=== PATIENT | female | born 1960 | race Caucasian/White ===

== ENCOUNTER → 2018-12-27 | Outpatient (CLI) | payer OTHER | LOC: YCFC.O 09:19 | PROVIDERS: ATTEND Nurse Practitioner Family | DX: Z13.220 Encounter for screening for lipoid disorders (principal); E11.65 Type 2 diabetes mellitus with hyperglycemia ==

== ENCOUNTER → 2018-12-28 | Outpatient (CLI) | payer OTHER ==
--- NOTE | 2018-12-28 11:44 | RAD ---
EXAM DESCRIPTION: Chest,2 Views CLINICAL HISTORY: COPD COMPARISON: None TECHNIQUE: PA/lateral FINDINGS: Minimal linear scarring or discoid atelectasis in the right perihilar and left lingular regions. Heart size is prominent with normal pulmonary vascularity. No pleural effusion or pneumothorax. Lungs are otherwise clear with no consolidating infiltrate. Lateral view shows intact sternum and T-spine. IMPRESSION: Prominent heart without congestive failure. Electronically signed by: Óscar Riggins MD 12/28/2018 11:41 AM CDT
--- NOTE | 2018-12-28 16:13 | RAD ---
EXAM DESCRIPTION: Hip,Left 2 Views: CR/DR/XR CLINICAL HISTORY: 58 years Female HIP PAIN COMPARISON: Chest x-ray on this visit. TECHNIQUE: Two Views. AP neutral AP ABDuction.. Technically difficult study due to patient body habitus and bone density.. FINDINGS: Narrowing of the superior left hip joint and marginal spurs superiorly including the acetabulum. No displaced dislocation. Enthesophytes on the greater trochanter at the gluteus insertions. No abnormal radiodense objects in the soft tissues. IMPRESSION: Limited study. Narrowing of the superior left hip joint with marginal spurs. No displaced fracture. Enthesophytes. Evaluation for fracture is limited given the degree of osteopenia. If high clinical concern for acute fracture, correlation with MRI recommended given its greater sensitivity in the osteopenic patient. If the patient cannot tolerate MRI imaging or more urgent imaging is required, CT could be performed, however it is less sensitive in the osteopenic patient when compared to MRI. Electronically signed by: Steven Loyola MD 12/28/2018 4:11 PM CDT
== END ==
LOC: RAD 11:00
PROVIDERS: ATTEND Nurse Practitioner Family
DX: J44.9 Chronic obstructive pulmonary disease, unspecified (principal); M25.852 Other specified joint disorders, left hip

== ENCOUNTER → 2019-01-13 | Outpatient (CLI) | payer OTHER ==
--- NOTE | 2019-01-13 11:48 | RAD ---
EXAM DESCRIPTION: Pelvis CLINICAL HISTORY: 58 years Female, HIP PAIN COMPARISON: 12/28/2018. FINDINGS/IMPRESSION: Single frontal view of the pelvis demonstrate overlying bowel gas which partially obscures the sacrum and medial aspect of the bilateral iliac bones. Mild bilateral hip osteoarthrosis. No acute displaced fracture or dislocation is seen. Scattered phleboliths are present within the pelvis. The bone mineralization is preserved. Electronically signed by: Devon Dubose DO 01/13/2019 11:46 AM CDT
== END ==
LOC: RAD 09:06
PROVIDERS: ATTEND Orthopaedic Surgery
DX: M16.0 Bilateral primary osteoarthritis of hip (principal); I87.8 Other specified disorders of veins

== ENCOUNTER → 2019-01-19 | Outpatient (CLI) | payer OTHER ==
--- NOTE | 2019-01-19 12:28 | MRI ---
MRI left hip without contrast INDICATION: Tendon rupture hip pain TECHNIQUE: Noncontrast MR imaging left hip FINDINGS: No fracture or osteonecrosis left hip. Mild osteoarthrosis pubic symphysis. Small cyst left femoral neck posteriorly. Tendinopathy and mild interstitial chronic partial tears of the gluteal tendons and mild left greater trochanteric bursitis. No complete rupture or retraction. Mild degenerative signal and fraying anterior superior labrum left hip Proximal hamstring tendons are intact. IMPRESSION: Gluteal tendinopathy and mild chronic interstitial partial tears left hip with mild trochanteric bursitis Mild degenerative change anterior superior labrum left hip Mild osteoarthrosis pubic symphysis No fracture or osteonecrosis Electronically signed by: Dany Lopez MD 01/19/2019 12:26 PM CDT
== END ==
LOC: MRI 09:00
PROVIDERS: ATTEND Orthopaedic Surgery
DX: S76.012A Strain of muscle, fascia and tendon of left hip, initial encounter (principal); M70.62 Trochanteric bursitis, left hip; M16.12 Unilateral primary osteoarthritis, left hip

== ENCOUNTER 2019-02-01 11:19 | Inpatient (IN) | payer OTHER ==
[2019-02-01] MEDS ORDERED: SODIUM CHLORIDE 0.9% (FLUSH) 10 ML SYG IV PRN ×2 (11:46→18:00)
[2019-02-01] MEDS ORDERED: SODIUM CHLORIDE 0.9% 1000ML 1,000 ML IVS ONE ×2 (11:49→13:45)
[2019-02-01] MEDS ORDERED: KCL 20 MEQ/NS 1,000 ML IVS PRN (14:56)
[2019-02-01] MEDS ORDERED: INSULIN, REG.(HUMAN) 100 U/ML VIAL IV ONE (14:59)
[2019-02-01] MEDS ORDERED: IV SET AND CAP CHANGE INJ INJ SCH (18:00)
[2019-02-01] MEDS ORDERED: SODIUM CHL 0.9% 250ML (AVIVA) 250 ML IVPB ONE (18:43)
[2019-02-01] MEDS ORDERED: INSULIN, REG.(HUMAN) 100 U/ML VIAL ONE (18:43)
[2019-02-01] MEDS: INSULIN, REG.(HUMAN) 250 UNITS in SODIUM CHL 0.9% 250ML (AVIVA) 247.5 ML IVPB SCH ×2 (18:54)
[2019-02-01] MEDS: ENOXAPARIN SODIUM 40 MG/0.4 ML SYG SUBCU SCH (20:24)
[2019-02-01] MEDS: LACTATED RINGERS 1,000 ML IVS PRN (20:25)
[2019-02-01] MEDS ORDERED: DEXTROSE 50% 25 GM/50 ML SYG IV PRN (23:40)
[2019-02-01] MEDS ORDERED: GLUCAGON INJ 1 MG VIAL SUBCU PRN (23:40)
[2019-02-02] MEDS: INSULIN LISPRO 100 UNITS/ML PEN SUBCU SCH ×6 (00:16→19:59)
[2019-02-02] MEDS: LACTATED RINGERS 1,000 ML IVS PRN ×2 (04:21→14:26)
[2019-02-02] MEDS: INSULIN, REG.(HUMAN) 250 UNITS in SODIUM CHL 0.9% 250ML (AVIVA) 247.5 ML IVPB SCH ×4 (05:46→16:53)
[2019-02-02] MEDS: OMEPRAZOLE CAP 20 MG CAP PO SCH (06:02)
[2019-02-02] MEDS: ACETAMINOPHEN 325 MG TAB PO PRN (08:11)
[2019-02-02] MEDS ORDERED: ALBUTEROL INH (ER DISPENSE) 1 EA INH INH PRN (13:35)
[2019-02-02] MEDS ORDERED: DILTIAZEM HCL 120 MG PO SCH (13:45)
[2019-02-02] MEDS ORDERED: ALBUTEROL INHALER 64 PUFF/8GM INH PRN (13:47)
[2019-02-02] MEDS: INSULIN GLARGINE 100 UNIT SC SCH (13:51)
[2019-02-02] MEDS ORDERED: GABAPENTIN 400 MG CAP ONE (14:20)
[2019-02-02] MEDS: GABAPENTIN 400 MG CAP PO SCH ×2 (14:25→20:42)
[2019-02-02] MEDS: ESCITALOPRAM 10 MG TAB PO SCH (14:25)
[2019-02-02] MEDS: ENOXAPARIN SODIUM 40 MG/0.4 ML SYG SUBCU SCH (17:37)
[2019-02-02] MEDS: levETIRAcetam 250 MG TAB PO SCH (20:42)
[2019-02-03] MEDS: INSULIN LISPRO 100 UNITS/ML PEN SUBCU SCH ×3 (00:13→08:10)
[2019-02-03] MEDS: ACETAMINOPHEN 325 MG TAB PO PRN (05:02)
[2019-02-03] MEDS: INSULIN, REG.(HUMAN) 250 UNITS in SODIUM CHL 0.9% 250ML (AVIVA) 247.5 ML IVPB SCH ×2 (05:09)
[2019-02-03] MEDS: OMEPRAZOLE CAP 20 MG CAP PO SCH (05:50)
[2019-02-03 05:56] VITALS: TEMP 98.4
[2019-02-03] MEDS: ESCITALOPRAM 10 MG TAB PO SCH (08:17)
[2019-02-03] MEDS: levETIRAcetam 250 MG TAB PO SCH (08:17)
[2019-02-03] MEDS: GABAPENTIN 400 MG CAP PO SCH (08:17)
[2019-02-03] MEDS: INSULIN GLARGINE 100 UNIT SC SCH (08:18)
[2019-02-03 08:45] VITALS: BP 136/78; O2SAT 96
[2019-02-03] MEDS ORDERED: PRAVASTATIN SODIUM 20 MG TAB PO SCH (09:00)
[2019-02-03] MEDS ORDERED: CETIRIZINE HCL 10 MG TAB PO SCH (09:00)
[2019-02-03] MEDS ORDERED: MELOXICAM 7.5 MG TAB PO SCH (09:00)
[2019-02-03] MEDS ORDERED: MONTELUKAST 10 MG TAB PO SCH (09:00)
== END 2019-02-03 11:30 | disposition home or self-care (01) | DRG 638 ==
LOC: ER 11:19 → MS 18:03 → OBSVTOIN 18:03
PROVIDERS: ADMIT Nurse Practitioner; ATTEND Nurse Practitioner Acute Care
DX: E11.10 Type 2 diabetes mellitus with ketoacidosis without coma (principal); N17.9 Acute kidney failure, unspecified; F05 Delirium due to known physiological condition; E86.0 Dehydration; I10 Essential (primary) hypertension; F32.9 Major depressive disorder, single episode, unspecified; F41.9 Anxiety disorder, unspecified; G47.00 Insomnia, unspecified; E78.5 Hyperlipidemia, unspecified; J44.9 Chronic obstructive pulmonary disease, unspecified; Z91.19 Patient's noncompliance with other medical treatment and regimen; H54.8 Legal blindness, as defined in USA; Z89.412 Acquired absence of left great toe; Z89.411 Acquired absence of right great toe; Z79.82 Long term (current) use of aspirin; Z79.51 Long term (current) use of inhaled steroids; Z88.0 Allergy status to penicillin; Z88.2 Allergy status to sulfonamides; Z87.891 Personal history of nicotine dependence; Z79.1 Long term (current) use of non-steroidal anti-inflammatories (NSAID); Z79.4 Long term (current) use of insulin; Z79.899 Other long term (current) drug therapy

== ENCOUNTER → 2019-02-08 | Outpatient (CLI) | payer OTHER ==
--- NOTE | 2019-02-09 14:40 | MRI ---
EXAM DESCRIPTION: Lumbar Spine w/o Contrast : Magnetic Resonance Imaging. CLINICAL HISTORY: LOW BACK PAIN COMPARISON: MRI scan left hip January 2019. TECHNIQUE: Multiplanar, multiple standard sequences, non contrast MRI, lumbar spine. Some sequences are minimally degraded by patient motion. FINDINGS: L5-S1: The disc is well visualized on axial T2 series 501, image 3. Marked disc space loss with moderate endplate reactive changes diffusely. Tiny posterior disc bulge. Hypertrophic bilateral facet arthrosis and thickened ligaments. AP canal diameter 10 mm. Bilateral disc osteophyte encroachment on the foramen with severe right foraminal narrowing and mild left foraminal narrowing. Mild narrowing of the right subarticular recess. L4-L5: Disc desiccation with disc space preserved. Posterior midline 3 mm bulge. Bilateral hypertrophic facet arthrosis and thickened ligaments with AP canal diameter 9 mm. Mild narrowing of the right subarticular recess. Bilateral foramina mild narrowing. L3-L4: Disc desiccation with disc space maintained no disc bulge. Mild hypertrophic facet arthrosis and ligament thickening. Mild to moderate canal narrowing. Bilateral foramina patent. L2-L3: Normal signal in the disc and disc space preserved. Mild hypertrophic facet arthrosis and thickened ligaments. Mild canal narrowing. Bilateral foramina are patent. L1-L2: Normal signal in the disc with disc space preserved. Minimal thickening of the ligaments. Canal and bilateral foramina are patent. Conus terminates just above the disc space. Circumscribed hyperintense T1 and T2 hemangioma in the L1 vertebral body. T12-L1: Normal signal in the disc with disc space preserved. Posterior elements unremarkable. Canal and foramina are patent. Small hemangiomas in the T12 vertebral body. Anatomic curvature. Paravertebral soft tissues mild paraspinal muscle atrophy.. Cord normal signal and caliber. Normal marrow signal in the remaining vertebral bodies and the posterior elements. Vertebral bodies are not compressed at any level. IMPRESSION: 1. Disc desiccation predominantly at the lower levels, and hypertrophic changes in the facet joints and ligaments at multiple levels. 2. Moderate spondylosis L5-S1. Borderline mild central canal stenosis is multifactorial. Severe right foraminal narrowing. Correlate for radiculopathy right L5. 3. Multifactorial mild central canal stenosis at L4-5. Narrowing of the right subarticular recess and bilateral foramina. Electronically signed by: Steven Loyola MD 02/09/2019 2:39 PM CDT
== END ==
LOC: MRI 14:00
PROVIDERS: ATTEND Orthopaedic Surgery
DX: M51.16 Intervertebral disc disorders with radiculopathy, lumbar region (principal); M47.27 Other spondylosis with radiculopathy, lumbosacral region; M48.062 Spinal stenosis, lumbar region with neurogenic claudication

== ENCOUNTER → 2019-05-10 | Outpatient (CLI) | payer OTHER ==
--- NOTE | 2019-05-10 15:22 | RAD ---
EXAM DESCRIPTION: Abdomen 1 View CLINICAL HISTORY: 59 years Female, ABD PAIN COMPARISON: None. TECHNIQUE: 1 view of the abdomen was performed. FINDINGS: Prominent air distended small bowel loops are identified throughout the abdomen, concerning for small bowel obstruction. No significant amount of fecal material is identified. No abnormal calcifications are noted. IMPRESSION: Prominent air distended small bowel loops are identified throughout the abdomen, concerning for small bowel obstruction. Electronically signed by: Lillie Maradiaga MD 05/10/2019 3:20 PM FLAME GOUGER
== END ==
LOC: LAB.O 10:36
PROVIDERS: ATTEND Nurse Practitioner
DX: R10.9 Unspecified abdominal pain (principal); L65.9 Nonscarring hair loss, unspecified; R06.00 Dyspnea, unspecified

== ENCOUNTER 2019-05-11 12:51 | Inpatient (IN) | payer OTHER ==
--- NOTE | 2019-05-11 13:29 | ED.PDOC ---
History of Present Illness - General Chief Complaint: Abdominal Pain Stated Complaint: abdominal pain,bloating Time Seen by Provider: 05/11/19 13:12 Information Source: patient Exam Limitations: no limitations - History of Present Illness Initial Comments: 59 yo F who presents after call from PCP with concerns for obstruction seen on outpt XR. Pt went for a routine follow up appointment yesterday and mentioned her abd distention with associated nausea and chronic wavering constipation and diarrhea, and XR was obtained and pt was called with results today and told to come to the ED. Pt has self diagnosed herself with IBS. Endorses associated epigastric abd discomfort, no radiation, constant. Denies f/c, cough, congestion, CP, SOB, vomiting, urinary sx. Review of Systems - Review of Systems Constitutional: Denies: chills, fever EENTM: Denies: nose congestion, throat pain Respiratory: Denies: cough, short of breath Cardiology: Denies: chest pain, edema, palpitations, syncope Gastrointestinal/Abdominal: States: abdominal pain, constipation, diarrhea, nausea, other - abd distention Genitourinary: Denies: dysuria, frequency, hematuria Musculoskeletal: Denies: back pain, neck pain Skin: Denies: lesions, rash Neurological: Denies: headache, numbness, weakness Endocrine: Denies: increased thirst, increased urine Hematologic/Lymphatic: Denies: easy bleeding, easy bruising Past Medical History (General) - Patient Medical History Hx Seizures: Yes Hx Stroke: No Hx Asthma: Yes Hx of COPD: Yes Hx Cardiac Disorders: Yes Hx Congestive Heart Failure: No Hx Pacemaker: No Hx Hypertension: Yes Hx Diabetes: Yes Hx MRSA: No Surgical History: Hysterectomy - Vaccination History Hx Influenza Vaccination: No Hx Pneumococcal Vaccination: Yes - Social History Hx Tobacco Use: Yes Hx Alcohol Use: No Hx Substance Use: No Hx Depression: Yes Hx Physical Abuse: No Hx Emotional Abuse: No Family Medical History - Family History Mother Family History: Unknown Living Status: Unknown Hx Family;Other: patient will not answer Father Family History: Unknown Living Status: Unknown Physical Exam - Physical Exam General Appearance: Alert, Comfortable, Well Developed, Well Nourished Eyes, Ears, Nose, Throat Exam: normal ENT inspection Neck: full range of motion, supple Respiratory: chest non-tender, lungs clear, normal breath sounds, no respiratory distress, no accessory muscle use Cardiovascular/Chest: normal peripheral pulses, regular rate, rhythm, no edema, no gallop, no JVD, no murmur Peripheral Pulses: No deficit Gastrointestinal/Abdominal: normal bowel sounds, non tender, soft, no organomegaly, no pulsatile mass, distended - mild Extremity: normal range of motion, non-tender, normal inspection, no pedal edema Neurologic: no motor/sensory deficits, alert, normal mood/affect, oriented x 3 Skin Exam: normal color, warm/dry Progress - Progress Progress: Discussed with Terence midlevel for hospitalist, accepts pt for admission. Discussed with Dr. Syed, will consult. He requests NPO and NG tube. Discussed plan for admission and NG tube with pt, pt verbalizes understanding, all questions and concerns addressed. Kaitlynn Reese MD Emergency Medicine Physician Billing Number [id number] - Results/Orders Results/Orders: Laboratory Results - last 24 hr 05/11/19 05/11/19 05/11/19 13:10 13:10 14:39 WBC 6.6 RBC 3.67 L Hgb 11.2 L Hct 33.6 L MCV 91.5 MCH 30.5 MCHC 33.3 RDW 13.4 Plt Count 234 MPV 9.6 Absolute Neuts (auto) 4.00 Absolute Lymphs (auto) 1.70 Absolute Monos (auto) 0.60 Absolute Eos (auto) 0.20 Absolute Basos (auto) 0.10 Neutrophils % 61.4 Lymphocytes % 25.2 Monocytes % 8.8 Eosinophils % 3.7 Basophils % 0.9 Sodium 146 H Potassium 4.4 Chloride 114 H Carbon Dioxide 26 Anion Gap 10.4 L BUN 39 H Creatinine 1.18 BUN/Creatinine Ratio 33.1 H Random Glucose 140 H D Serum Osmolality 302.3 H Calcium 8.8 Total Bilirubin 0.3 AST 16 ALT 17 Alkaline Phosphatase 58 Serum Total Protein 6.8 Albumin 3.4 Globulin 3.4 Albumin/Globulin Ratio 1.0 L Urine Color Yellow Urine Appearance Cloudy Urine pH 5.5 Ur Specific [place] 1.025 Urine Protein 30 Urine Glucose (UA) Negative Urine Ketones Trace Urine Blood Trace-intact H Urine Nitrite Negative Urine Bilirubin Negative Urine Urobilinogen 0.2 Ur Leukocyte Esterase Trace H Urine RBC 0-1 Urine WBC 10-20 H Ur Epithelial Cells 10-20 Urine Bacteria 1+ CT abd/pelvis with IV and oral contrast: EXAM DESCRIPTION: Abdomen/Pelvis w/Contrast CLINICAL HISTORY: 59 years Female, abd pain COMPARISON: None available. TECHNIQUE: Contiguous 3 mm axial images were obtained from the lung bases to the level of the proximal femora after the administration of intravenous and oral contrast. Sagittal and coronal reconstructions were reviewed. FINDINGS: THORAX: The imaged lower thorax demonstrates no gross abnormality. LIVER: 1.2 cm indeterminate hypodense lesion is identified in hepatic segment 5/8 on image #22. GALLBLADDER: Grossly unremarkable. PANCREAS: Appears normal with no cystic or solid lesions. SPLEEN: Normal ADRENAL GLANDS: Normal with no nodules or masses. KIDNEYS: Both kidneys enhance symmetrically with no hydronephrosis or nephrolithiasis or perinephric fluid collections. No focal masses are identified. The visualized ureters appear grossly unremarkable. STOMACH: Thickening of the distal esophagus which could be secondary to reflux. The stomach is mildly distended with no gross abnormality. SMALL BOWEL: Multiple dilated and fluid-filled proximal small bowel loops are identified throughout the left hemiabdomen. Possible transition point is identified in the midline pelvis on image #70. Findings are concerning for small bowel obstruction. LARGE BOWEL: Moderate amount of fecal material is noted throughout the colon, consistent with constipa tion. The appendix is well-visualized and appears normal Small amount of free fluid is identified in the pelvis. No free intraperitoneal air. RETROPERITONEUM: The abdominal aorta is nonaneurysmal with moderate atherosclerosis. The inferior vena cava is normal in size and caliber. Multiple subcentimeter mesenteric lymph nodes are identified. URINARY BLADDER: Mildly distended with no gross abnormality. The uterus and ovaries are surgically absent. ADDITIONAL FINDINGS: None. BONES: Mild degenerative changes are identified in the visualized bones.No evidence of osteophytic or osteoblastic le sions. IMPRESSION: Dilated and fluid-filled small bowel loops with a transition point noted in the midline pelvis probably in the region of the proximal ileum, consistent with small bowel obstruction. No perforation or pneumatosis. This exam was performed according to our departmental dose-optimization program, which includes automated exposure control, adjustment of the mA and/or kV according to patient size and/or use of iterative reconstruction technique. Electronically signed by: Lillie Maradiaga MD 05/11/2019 3:28 PM OUTSIDE EVENT SALES SPECIALIST Vital Signs - 24 hr 05/11/19 05/11/19 13:08 14:31 Temperature 96.5 F L Pulse Rate [ 78 75 Left Brachial] Respiratory 16 20 Rate Blood Pressure 132/73 131/76 [Left Arm] O2 Sat by Pulse 99 97 Oximetry - EKG/XRAY/CT EKG: Sinus, no ST T wave changes Comments: Poor R wave progression Departure - Departure Clinical Impression: Small bowel obstruction Time of Disposition: 15:43 Disposition: Admit Patient Condition: Fair Home Medications: Ambulatory Orders Albuterol Sulfate [Proair Hfa] 2 puff INH Q6H PRN 02/01/19 Diltiazem HCl 120 mg PO DAILY 02/01/19 Escitalopram [Lexapro] 10 mg PO DAILY 02/01/19 Famotidine 20 mg PO DAILY 02/01/19 Insulin Glargine [Toujeo Solostar] 100 unit SC DAILY 02/01/19 Levetiracetam [Keppra] 750 mg PO BID 02/01/19 Meloxicam 15 mg PO DAILY 02/01/19 Montelukast [Singulair] 10 mg PO DAILY 02/01/19 Pravastatin Sodium 40 mg PO DAILY 02/01/19 Cetirizine HCl [Allergy 24Hour Indoor/Out] 10 mg PO DAILY 02/02/19 Furosemide 40 mg PO DAILY 02/02/19 Gabapentin 800 mg PO TID 02/02/19 ALPRAZolam [Xanax] 0.25 mg PO BID PRN #10 tab 02/03/19
--- NOTE | 2019-05-11 15:29 | CT ---
EXAM DESCRIPTION: Abdomen/Pelvis w/Contrast CLINICAL HISTORY: 59 years Female, abd pain COMPARISON: None available. TECHNIQUE: Contiguous 3 mm axial images were obtained from the lung bases to the level of the proximal femora after the administration of intravenous and oral contrast. Sagittal and coronal reconstructions were reviewed. FINDINGS: THORAX: The imaged lower thorax demonstrates no gross abnormality. LIVER: 1.2 cm indeterminate hypodense lesion is identified in hepatic segment 5/8 on image #22. GALLBLADDER: Grossly unremarkable. PANCREAS: Appears normal with no cystic or solid lesions. SPLEEN: Normal ADRENAL GLANDS: Normal with no nodules or masses. KIDNEYS: Both kidneys enhance symmetrically with no hydronephrosis or nephrolithiasis or perinephric fluid collections. No focal masses are identified. The visualized ureters appear grossly unremarkable. STOMACH: Thickening of the distal esophagus which could be secondary to reflux. The stomach is mildly distended with no gross abnormality. SMALL BOWEL: Multiple dilated and fluid-filled proximal small bowel loops are identified throughout the left hemiabdomen. Possible transition point is identified in the midline pelvis on image #70. Findings are concerning for small bowel obstruction. LARGE BOWEL: Moderate amount of fecal material is noted throughout the colon, consistent with constipation. The appendix is well-visualized and appears normal Small amount of free fluid is identified in the pelvis. No free intraperitoneal air. RETROPERITONEUM: The abdominal aorta is nonaneurysmal with moderate atherosclerosis. The inferior vena cava is normal in size and caliber. Multiple subcentimeter mesenteric lymph nodes are identified. URINARY BLADDER: Mildly distended with no gross abnormality. The uterus and ovaries are surgically absent. ADDITIONAL FINDINGS: None. BONES: Mild degenerative changes are identified in the visualized bones.No evidence of osteophytic or osteoblastic lesions. IMPRESSION: Dilated and fluid-filled small bowel loops with a transition point noted in the midline pelvis probably in the region of the proximal ileum, consistent with small bowel obstruction. No perforation or pneumatosis. This exam was performed according to our departmental dose-optimization program, which includes automated exposure control, adjustment of the mA and/or kV according to patient size and/or use of iterative reconstruction technique. Electronically signed by: Lillie Maradiaga MD 05/11/2019 3:28 PM CLINICAL SOCIOLOGIST
[2019-05-11] MEDS ORDERED: SODIUM CHLORIDE 0.9% 1000ML 1,000 ML IVS PRN (15:46)
[2019-05-11] MEDS ORDERED: LIDOCAINE 2 % GEL 5 ML TUBE TOP ONE (15:57)
--- NOTE | 2019-05-11 16:22 | HP ---
SUPERVISING PHYSICIAN: Saad Medrano M.D. CHIEF COMPLAINT: Abdominal pain. HISTORY OF PRESENT ILLNESS: This is a 59 year-old female who came to the Emergency Room at the request of her primary care physician. Apparently she has been having some abdominal pain and distention for the last several days. She is having some diarrhea. She states that she thinks she has irritable bowel syndrome and is intolerant to red meats and sauces that are red. She states she keeps a diary of this, however, her primary care physician yesterday, due to the distention and abdominal pain, did an abdominal x-ray yesterday. The results were resulted today and showed a small bowel obstruction, therefore she requested that the patient come to have a CT scan and wanted to directly admit the patient. However, I requested the patient go through the Emergency Room in the event the patient did have free air or some other abnormalities on CAT scan. The CAT scan was done in the Emergency Room and showed a small bowel obstruction but it did not show any free air. Additionally other labs were done. She had a little bit of elevation in the sodium levels. White count was normal. Hemoglobin 11.2, platelet count 234. There is no left shift. Glucose was elevated at 140. Elevation in the BUN at 39 indicating some dehydration. Urinalysis shows trace leukocyte esterase and 10 to 20 WBCs and the urine was cloudy. The CAT scan that was done shows dilated and fluid-filled small bowel loops with a transition point noted in the midline pelvis probably in the region of the proximal ileum. This was noted to be consistent with small bowel obstruction and there was no noted free air or pneumatosis. Therefore the patient was referred for admission. Dr. Syed had already been contacted by the primary care physician and was once again contacted by the Emergency Room physician. He came to the Emergency Room and requested a nasogastric tube and NPO status. According to the patient, Dr. Syed plans on potentially taking the patient to surgery. PAST MEDICAL HISTORY: 1. Diabetes mellitus. Recently had an admission for diabetic ketoacidosis earlier in the fall, but states since that episode her blood sugar has not been over 200. 2. Depression with anxiety. 3. Legal blindness. 4. Hypertension. 5. Chronic obstructive pulmonary disease. 6. Unsteady gait. 7. Hyperlipidemia. 8. Left hip pain. PAST SURGICAL HISTORY: 1. Hysterectomy. 2. sections times 3. 3. Tonsillectomy. 4. Bilateral great toe amputations. 5. Liver biopsy in the past. 6. Apparently she used to have hepatitis C but is now cured. CURRENT MEDICATIONS: Please see the medication reconciliation record once it is completed in the computer. ALLERGIES: LATEX, PENICILLIN, SULFA DRUGS AND PAPER TAPE. FAMILY HISTORY: Substance abuse, diabetes, depression, COPD, seizures, sleep apnea. SOCIAL HISTORY: The patient is single and has 2 children. Former smoker but does not smoke any longer. Denies any alcohol or illegal drugs. REVIEW OF SYSTEMS: No fever or chills. No recent weight loss or weight gain. HEENT: No headaches, vision changes, but she does have chronic blindness. No nasal congestion. No throat pain. RESPIRATORY: No cough, hemoptysis or pleuritic chest pain. CARDIOVASCULAR: No chest pain, palpitations or peripheral edema. GASTROINTESTINAL: Positive for a little bit of nausea but no vomiting. Positive for diarrhea and intermittent constipation. Positive for abdominal pain and abdominal distention. GENITOURINARY: No dysuria, frequency or flank pain. ENDOCRINE: No polydipsia, polyuria or polyphagia. No heat or cold intolerance. HEMATOLOGIC: No easy bruising or transfusion reaction. NEUROLOGIC: No syncope, seizures or paresthesias. PHYSICAL EXAMINATION: VITAL SIGNS: Blood pressure 153/83, heart rate 75, respiratory rate 20, temperature 97.5, oxygen saturation 97%. GENERAL: Ms. Padilla is a 59 year-old female who is in no active distress currently. CHEST: Clear to auscultation bilaterally. CARDIOVASCULAR: Regular rate and rhythm. Normal S1 and S2. ABDOMEN: Distended. Some epigastric tenderness to palpation. Nasogastric tube is in place. GENITOURINARY: Exam is deferred. EXTREMITIES: Lower extremities with no significant edema. NEUROLOGIC: The patient is alert and oriented. LABORATORY: Labs and films are discussed in History of Present Illness. ASSESSMENT: 1. Small bowel obstruction. 2. Dehydration with prerenal azotemia. 3. Diabetes mellitus type 2, insulin dependent. 4. History of depression with anxiety. 5. Chronic obstructive pulmonary disease with no acute exacerbation. 6. Hypertension with a controlled reading at this time. PLAN: The patient will be NPO with nasogastric tube. Surgical consultation has already been done with Dr. Syed and according to the patient, Dr. Syed plans on potential surgical intervention. Will monitor her blood sugars and treat with short-acting, holding long-acting insulins at this time. Will hold all of her other medicines as well. I have ordered some pain medication which hopefully can control her pain as well as anxiety levels. Proton pump inhibitor for GI ulcer prophylaxis. Holding any anticoagulation due to potential surgical intervention. #[id number] MTDD
--- NOTE | 2019-05-11 16:24 | RAD ---
EXAM DESCRIPTION: Chest,1 View CLINICAL HISTORY: 59 years Female, NG tube placement COMPARISON: February 01, 2019 TECHNIQUE: AP portable chest. FINDINGS: Nasogastric tube has been placed and can be followed through the neck and the upper and mid thorax within the esophagus but the distal extent and position of the tube either in the distal esophagus or below the GE junction cannot be determined from this underpenetrated film. The tube is not within the lung ngo but could very well be within the distal esophagus or at the GE junction. Tortuous aorta and borderline cardiomegaly with normal vascularity and clear lung ngo is noted. IMPRESSION: 1. NG tube in place and followed through the cervical and upper and mid thoracic esophagus but the distal position of the tip is not evident on this single image obtained and may very well be within the distal esophagus or at the GE junction. The tube is not within the lung ngo. Consider repeat examination to identify the position of the tube tip. 2. Mild cardiomegaly with clear lung ngo. Electronically signed by: Quinten Beard MD 05/11/2019 4:22 PM SENIOR DIGITAL DESIGNER
--- NOTE | 2019-05-11 17:36 | RAD ---
EXAM DESCRIPTION: Chest,1 View CLINICAL HISTORY: NG placement COMPARISON: Chest radiograph dated May 11, 2019 at 1609 hours TECHNIQUE: 1 view radiograph of the chest FINDINGS: Nasogastric tube courses midline and extends below the diaphragm with distal tip projecting over the proximal gastric body. Cardiac silhouette shows borderline cardiomegaly. Pulmonary vascularity is within normal limits. Minimal linear opacities in the bilateral lung bases most likely represent bibasilar atelectasis. Otherwise, lungs show no confluent infiltrates. No pleural effusion. No pneumothorax. A safety pin is seen over the right axillary region. Visualized osseous structures show no acute interval change. IMPRESSION: 1. Nasogastric tube courses midline and extends below the diaphragm with distal tip projecting over the proximal gastric body. 2. Minimal bibasilar atelectasis. Lungs show no confluent infiltrates. 3. Borderline cardiomegaly. No congestive heart failure. Electronically signed by: Zeus Terrazas MD 05/11/2019 5:34 PM [employer]
[2019-05-11] MEDS ORDERED: SODIUM CHLORIDE 0.9% (FLUSH) 10 ML SYG IV PRN (17:56)
[2019-05-11] MEDS ORDERED: IV SET AND CAP CHANGE INJ INJ SCH (18:00)
[2019-05-11] MEDS: fentaNYL CITRATE INJ 50 MCG/ML AMP IV PRN ×2 (18:32→21:46)
[2019-05-11] MEDS: LACTATED RINGERS 1,000 ML IVS PRN (18:32)
[2019-05-11] MEDS: PANTOPRAZOLE SODIUM IV 40 MG VIAL IV SCH (18:33)
[2019-05-12] MEDS ORDERED: DEXTROSE 10% 500ML IVPB PRN (01:34)
[2019-05-12] MEDS ORDERED: GLUCAGON INJ 1 MG VIAL SUBCU PRN (01:34)
[2019-05-12] MEDS: fentaNYL CITRATE INJ 50 MCG/ML AMP IV PRN ×6 (03:00→21:16)
[2019-05-12] MEDS: LACTATED RINGERS 1,000 ML IVS PRN ×2 (04:20→15:33)
[2019-05-12] MEDS: INSULIN LISPRO 100 UNITS/ML PEN SUBCU SCH ×3 (06:24→18:15)
--- NOTE | 2019-05-12 11:26 | RAD ---
2 Radiographs of the Abdomen. Indication: f/u sbo Comparison: None. Impression: NG tube tip terminates at the region of the gastroesophageal junction. Further advancement by 12 cm recommended. Persistent small bowel obstruction with dilated loops of small bowel. Mild constipation. No abnormal calcifications. No acute osseous abnormality. Electronically signed by: Marcus Morrell MD 05/12/2019 11:24 AM [employer]
--- NOTE | 2019-05-12 13:26 | PN ---
SUPERVISING PHYSICIAN: Saad Medrano MD DATE: 05/12/19 SUBJECTIVE: The patient feels like she is less distended. Pain is controlled with the fentanyl she has been getting on a p.r.n. basis. No nausea at this time. OBJECTIVE: VITAL SIGNS: Blood pressure 155/92. Heart rate 90. Respiratory rate 20. Temperature 97.8. Oxygen saturation 95%. GENERAL: Ms. Padilla is a 59-year-old female in no active distress currently. NEUROLOGIC: Alert and oriented. LUNGS: Clear to auscultation bilaterally. CARDIOVASCULAR: Regular rate and rhythm. Normal S1, S2. ABDOMEN: Still distended, but softer than last night. No significant tenderness to palpation. She has about 700 mL out with the NG tube. LABORATORY: White count 6.5, hemoglobin 10.9, platelet count 224. Chemistry reveals sodium 147, potassium 4.0, chloride 113, carbon dioxide 27, BUN 24, creatinine 0.79. Glucose 91, calcium 9.1. ASSESSMENT: 1. Small bowel obstruction. 2. Dehydration with prerenal azotemia. 3. Diabetes mellitus, type 2, insulin dependent. 4. History of depression with anxiety. 5. Chronic obstructive pulmonary disease with no exacerbation. 6. Hypertension. PLAN: We are still awaiting Dr. Syed to evaluate the patient this morning. She is going to have an abdominal series today. Keep NPO, keep NG tube to low intermittent suction as well. #[id number] [facility]TDD
--- NOTE | 2019-05-12 13:53 | RAD ---
Study: Single Frontal Radiograph of the Chest. Indication:NG placement Comparison: May 11, 2019 Impression: NG tube tip terminates in the antrum of the stomach. Cardiomegaly with mild interstitial edema. Mild left basilar atelectasis. No pleural effusion or pneumothorax. Electronically signed by: Marcus Morrell MD 05/12/2019 1:51 PM [facility]
[2019-05-12] MEDS: PANTOPRAZOLE SODIUM IV 40 MG VIAL IV SCH (18:20)
[2019-05-13] MEDS: INSULIN LISPRO 100 UNITS/ML PEN SUBCU SCH ×3 (00:15→14:53)
[2019-05-13] MEDS: fentaNYL CITRATE INJ 50 MCG/ML AMP IV PRN ×3 (00:39→09:08)
[2019-05-13] MEDS: LACTATED RINGERS 1,000 ML IVS PRN ×2 (01:49→11:10)
[2019-05-13 15:40] VITALS: TEMP 98.1
[2019-05-13 15:47] VITALS: BP 124/70; O2SAT 96
--- NOTE | 2019-05-17 14:41 | DS ---
SUPERVISING PHYSICIAN: Saad Medrano MD ADMISSION DIAGNOSIS 1. Small bowel obstruction. 2. Dehydration with prerenal azotemia. 3. Diabetes mellitus, type 2, insulin dependent. 4. History of depression with anxiety. 5. Chronic obstructive pulmonary disease with no acute exacerbation. 6. Hypertension with a controlled reading at this time. DISCHARGE DIAGNOSIS: 1. Small bowel obstruction, resolved with the patient tolerating oral diet. 2. Dehydration with prerenal azotemia, resolved with fluids. 3. Diabetes mellitus, type 2, insulin dependent. 4. History of depression with anxiety. 5. Chronic obstructive pulmonary disease with no exacerbation. 6. Hypertension. REASON FOR HOSPITALIZATION: This is a 59 year-old female who came to the Emergency Room at the request of her primary care physician. Apparently she has been having some abdominal pain and distention for the last several days. She is having some diarrhea. She states that she thinks she has irritable bowel syndrome and is intolerant to red meats and sauces that are red. She states she keeps a diary of this, however, her primary care physician yesterday, due to the distention and abdominal pain, did an abdominal x-ray yesterday. The results were resulted today and showed a small bowel obstruction, therefore she requested that the patient come to have a CT scan and wanted to directly admit the patient. However, I requested the patient go through the Emergency Room in the event the patient did have free air or some other abnormalities on CAT scan. The CAT scan was done in the Emergency Room and showed a small bowel obstruction but it did not show any free air. Additionally other labs were done. She had a little bit of elevation in the sodium levels. White count was normal. Hemoglobin 11.2, platelet count 234. There is no left shift. Glucose was elevated at 140. Elevation in the BUN at 39 indicating some dehydration. Urinalysis shows trace leukocyte esterase and 10 to 20 WBCs and the urine was cloudy. The CAT scan that was done shows dilated and fluid-filled small bowel loops with a transition point noted in the midline pelvis probably in the region of the proximal ileum. This was noted to be consistent with small bowel obstruction and there was no noted free air or pneumatosis. Therefore the patient was referred for admission. Dr. Syed had already been contacted by the primary care physician and was once again contacted by the Emergency Room physician. He came to the Emergency Room and requested a nasogastric tube and NPO status. According to the patient, Dr. Syed plans on potentially taking the patient to surgery. LABORATORY: CBC was normal. White count showed mild anemia at 10.9 and hematocrit 32.8. Platelet count normal at 224,000. Discharge blood sugars were stable between 77 and 160. Admission chemistry showed she had a little elevated sodium at 147, BUN 24, creatinine 0.79. Liver functions all within normal limits. Urinalysis showed trace of intact blood with trace of leukocyte esterase. Microscopic revealed 0 to 1 RBCs, 10 to 20 WBCs with 10 to 20 epithelials, 1+ bacteria. RADIOLOGY: Abdominopelvic CT with contrast per radiologic interpretation showed dilated and fluid-filled small loops with transition point noted in the midline pelvis probably in the region of the proximal ileum consistent with small bowel obstruction. No perforation, no pneumatosis. This was followed up with chest x-ray and additional abdominal x-rays. The last abdominal x-ray on 05/12/19 per radiologic interpretation showed NG tube terminating in the region of the gastroesophageal junction with persistent small bowel obstruction with dilated loops of small bowel with some mild constipation. Her chest x-ray showed cardiomegaly with mild interstitial edema with some basilar atelectasis, no pleural effusions, no pneumothorax. HOSPITAL COURSE: Ms. Padilla was admitted for small bowel obstruction. She was placed on fluids, NPO and gastric decompression with NG tube. She was seen in consultation by Dr. Syed. Please see his note for details. Through hospitalization, she slowly had resolution of her symptoms, was having bowel movements, no longer having significant abdominal pain, no nausea or vomiting and tolerating diet. It was felt she was clinically stable enough to discharge to continue with outpatient management. DISCHARGE ASSESSMENT: VITAL SIGNS: Temperature 98.1. Pulse 80. Blood pressure 124/70. Saturation 93% on room air. Respirations 20. GENERAL APPEARANCE: The patient was resting comfortably and appeared to be in no acute distress. CHEST: Clear to auscultation. HEART: Regular rate and rhythm. ABDOMEN: Soft without any tenderness on palpation. Bowel sounds present. EXTREMITIES: Without edema. NEUROLOGIC: Alert and oriented times 3. PLAN: Ms. Padilla was discharged on 05/13/19 with instructions to followup with the surgeon, , next week as scheduled. She was to have a clear liquid diet, advance her diet as tolerated. Activities to increase as tolerated. No new medications were prescribed on discharge. CONDITION ON DISCHARGE: Stable and improved. DISPOSITION: The patient is discharged to care of family members. #[id number] [facility]
--- NOTE | 2019-06-07 14:59 | CONS ---
DATE OF CONSULTATION: 05/11/19 REASON FOR CONSULTATION: Partial small bowel obstruction. HISTORY OF PRESENT ILLNESS: This is a 59-year-old woman who presented to the Emergency Department after having abdominal pain, distention and some diarrhea. She has a history of irritable bowel syndrome, but now with significant distention and anorexia. CT scan had suggestion of small bowel obstruction. She denied significant nausea and vomiting now. She was seen in the Emergency Department in no acute distress with the above complaints and signs of a partial obstruction. With this, admission for observation was indicated. PAST MEDICAL HISTORY: 1. Diabetes. 2. Recent ketoacidosis. 3. History of depression. 4. Hypertension. 5. Chronic obstructive pulmonary disease. PAST SURGICAL HISTORY: 1. Hysterectomy. 2. C-sections. 3. Tonsillectomy. CURRENT MEDICATIONS: Please see list. ALLERGIES: LATEX, PENICILLIN AND SULFA. FAMILY HISTORY: Diabetes, chronic obstructive pulmonary disease and seizures. SOCIAL HISTORY: She used to smoke. She denies any illicit drugs or alcohol. REVIEW OF SYSTEMS: As above. In addition: GENERAL: She denies any fevers, chills. HEENT: No headache, no visual change, no sore throat. RESPIRATORY: No cough, no wheeze. CARDIOVASCULAR: No chest pain, no palpitations. GASTROINTESTINAL: As above. Diarrhea is nonbloody. Again, abdominal pain and distention. GENITOURINARY: No frequency, dysuria or hematuria. EXTREMITIES: No complaints. NEUROLOGIC: No complaints. PHYSICAL EXAMINATION: VITAL SIGNS: Afebrile, non-tachycardic. Blood pressure normal. GENERAL: She is alert and oriented times 3, in no acute distress. HEENT: Normocephalic, atraumatic. Pupils are equal and reactive. Sclerae anicteric. Oral mucosa is moist. NECK: Supple. No adenopathy, JVD or thyromegaly. CHEST: Clear bilaterally. HEART: Regular rate and rhythm. ABDOMEN: Distended. There is minimal distractible tenderness in the mid- abdomen. There is no evidence of masses or hernias. No rebound, no guarding. EXTREMITIES: No cyanosis, clubbing or edema. NEUROLOGIC: Mostly normal. LABORATORY: White blood cell count 6, hematocrit 33, platelets normal. CT scan showed dilated bowel, suspect transition point in the ilium. IMPRESSION: 1. Partial small bowel obstruction. No evidence of strangulation or pain out of proportion to exam. PLAN: I recommend NG tube placement and observation. The patient understood the plan. Questions were answered and she will be admitted. #[id number] [facility]TDD
--- NOTE | 2019-06-07 15:04 | PN ---
DATE: 05/12/19 SUBJECTIVE: No acute issues overnight. The patient feels decreased abdominal distention. No flatus. Decreased abdominal pain. OBJECTIVE: VITAL SIGNS: Afebrile. Vital signs stable are normal. NG tube put out 700 mL. GENERAL: She is in no acute distress. ABDOMEN: Her abdomen is softer, moderately distended. No acute tenderness. ASSESSMENT: 1. Partial small bowel obstruction, possibly resolving. The patient did have 700 mL out of her NG tube, so I do not recommend removing it and advancing her diet yet. PLAN: We will continue NG tube for decompression and observation. #[id number] [facility]
== END 2019-05-13 15:50 | disposition home or self-care (01) | DRG 390 ==
LOC: ER 12:51 → MS 16:20 → OBSVTOIN 16:20
PROVIDERS: ADMIT Nurse Practitioner; ATTEND Nurse Practitioner Family
DX: K56.600 Partial intestinal obstruction, unspecified as to cause (principal); E86.0 Dehydration; E11.9 Type 2 diabetes mellitus without complications; F32.9 Major depressive disorder, single episode, unspecified; F41.9 Anxiety disorder, unspecified; J44.9 Chronic obstructive pulmonary disease, unspecified; I10 Essential (primary) hypertension; E78.5 Hyperlipidemia, unspecified; H54.8 Legal blindness, as defined in USA; Z88.0 Allergy status to penicillin; Z88.2 Allergy status to sulfonamides; Z91.040 Latex allergy status; Z87.891 Personal history of nicotine dependence; Z79.4 Long term (current) use of insulin; Z79.1 Long term (current) use of non-steroidal anti-inflammatories (NSAID); Z79.899 Other long term (current) drug therapy